=== PATIENT | female | born 2000 | race American Indian/Alaskan Native ===

== ENCOUNTER 2020-05-13 19:13 | Emergency (ER) | payer SELFPAY ==
--- NOTE | 2020-05-13 19:59 | Emergency Department Report ---
Blank Doc - Documentation Documentation: 19-year-old female that presents pelvic pain with heavy vaginal discharge. This initial assessment/diagnostic orders/clinical plan/treatment(s) is/are subject to change based on patient's health status, clinical progression and re- assessment by fellow clinical providers in the ED. Further treatment and workup at subsequent clinical providers discretion. Patient/guardians urged not to elope from the ED as their condition may be serious if not clinically assessed and managed. Initial orders include: 1- Patient sent to [facility] for further evaluation and treatment 2- UA
[2020-05-13 20:11] VITALS: BP 122/76
--- NOTE | 2020-05-13 20:27 | Emergency Department Report ---
ED Female HPI - General Chief complaint: Abdominal Pain Stated complaint: HEAVY DISCHARGE Time Seen by Provider: 05/13/20 19:56 Source: patient Mode of arrival: Ambulatory Limitations: No Limitations - History of Present Illness Initial comments: 19-year-old -[place] female presents to the emergency room complaining of heavy vaginal discharge in pelvic discomfort. Patient denies any dysuria but admits to urinary frequency and urgency. Patient's last menstrual period was 05/08/2020. She is 1 para 1. She reports that she has had chlamydia in the past. Patient is currently on no control. Patient denies any fever chills no nausea no vomiting. MD Complaint: vaginal discharge, pelvic pain Onset/Timin -: days(s) Location: suprapubic Severity scale (0 -10): 2 Consistency: constant Are you Now?: No Last Menstrual Period: 05/08/20 EDC: 02/12/21 Associated Symptoms: vaginal discharge, abdominal pain. denies: nausea/vomiting, fever/chills, headaches, loss of appetite, dysuria, hematuria, shortness of breath, weakness - Related Data Sexually active: Yes : 1 Para: 1 Previous Rx's Medication Instructions Recorded Last Taken Type metroNIDAZOLE [Flagyl] 500 mg PO Q8HR 7 Days #21 tablet 05/13/20 Unknown Rx Allergies Allergy/AdvReac Type Severity Reaction Status Date / Time metoclopramide [From Reglan] Allergy Unknown Verified 05/13/20 20:01 holland seasoning Allergy Unknown Uncoded 05/13/20 20:01 ED Review of Systems ROS: Stated complaint: HEAVY DISCHARGE Other details as noted in HPI Comment: All other systems reviewed and negative ED Past Medical Hx - Past Medical History Previous Medical History?: No - Surgical History Past Surgical History?: Yes Additional Surgical History: scollosis - Social History Smoking Status: Current Every Day Smoker Substance Use Type: None - Medications Home Medications: Home Medications Medication Instructions Recorded Confirmed Last Taken Type metroNIDAZOLE [Flagyl] 500 mg PO Q8HR 7 Days #21 tablet 05/13/20 Unknown Rx ED Physical Exam - General Limitations: No Limitations General appearance: alert, in no apparent distress - Head Head exam: Present: atraumatic, normocephalic - Eye Eye exam: Present: normal appearance - ENT ENT exam: Present: mucous membranes moist - Neck Neck exam: Present: normal inspection - Respiratory Respiratory exam: Present: normal lung sounds bilaterally. Absent: respiratory distress - Cardiovascular Cardiovascular Exam: Present: regular rate, normal rhythm. Absent: systolic murmur, diastolic murmur, rubs, gallop - GI/Abdominal GI/Abdominal exam: Present: soft, normal bowel sounds - External exam: Present: normal external exam Speculum exam: Present: vaginal discharge Bi-manual exam: Present: normal bi-manual exam. Absent: cervical motion tendernes, adnexal mass, uterine enlargement - Extremities Exam Extremities exam: Present: normal inspection, full ROM - Back Exam Back exam: Present: normal inspection - Neurological Exam Neurological exam: Present: alert, oriented X3 ED Course Vital Signs 05/13/20 19:58 Temperature 98.9 F Pulse Rate 67 Respiratory 16 Rate Blood Pressure 122/76 O2 Sat by Pulse 99 Oximetry ED Medical Decision Making - Medical Decision Making 19-year-old -[place] female presents to the emergency room complaining of heavy vaginal discharge in pelvic discomfort. Patient denies any dysuria but admits to urinary frequency and urgency. Patient's last menstrual period was 05/08/2020. She is 1 para 1. She reports that she has had chlamydia in the past. Patient is currently on no control. Patient denies any fever chills no nausea no vomiting. Urinalysis urine wet prep and gonorrhea chlamydia sent to lab. Critical care attestation.: If time is entered above; I have spent that time in minutes in the direct care of this critically ill patient, excluding procedure time. ED Disposition Clinical Impression: Vaginal discharge, Bacterial vaginosis Disposition: - TO HOME OR SELFCARE Is pt being admited?: No Does the pt Need Aspirin: No Condition: Stable Instructions: Abdominal Pain (ED), Bacterial Vaginosis (ED), Bacterial Vagin osis, [id number] Additional Instructions: Labs came back positive for bacterial vaginosis. I want you to complete your medication as prescribed. Your gonorrhea and Chlamydia test is pending he can return to the hospital medical records in 5 to 7 days to obtain your results from your gonorrhea and Chlamydia test. I recommended she follow-up at the health department or your primary care provider or [facility] for full STD evaluation. Prescriptions: metroNIDAZOLE [Flagyl] 500 mg PO Q8HR 7 Days #21 tablet Referrals: [facility] [Provider Group] - 3-5 Days [facility] [Provider Group] - 3-5 Days [facility] [Provider Group] - 3-5 Days [facility] [Outside] - 3-5 Days Forms: STI Treatment and Prevention, Work/School Release Form(ED)
[2020-05-13 20:58] LABS: HCG Qualitative,Urine Negative (Negative)
[2020-05-13 21:00] LABS: Bacteria,Urine 1+ /HPF (Negative); Bilirubin,Urine NEG (Negative); Blood,Urine NEG (Negative); Color,Urine Yellow (Yellow); Hyaline Casts,Urine 3 /LPF; Mucus,Urine 3+ /HPF; Protein,Urine <15 mg/dL mg/dL (Negative)
== END 2020-05-13 21:20 | disposition home or self-care (01) ==
LOC: ED 19:13
DX: N76.0 Acute vaginitis (principal); F17.200 Nicotine dependence, unspecified, uncomplicated; Z79.899 Other long term (current) drug therapy; Z88.8 Allergy status to other drugs, medicaments and biological substances; Z98.890 Other specified postprocedural states
CPT/HCPCS: 81001; 81025; 87210; 87591